=== PATIENT | female | born 1930 | race Caucasian/White ===

== ENCOUNTER 2016-11-20 19:57 | Emergency (ER) | payer OTHER ==
--- NOTE | 2016-11-20 20:05 | CPEKG ---
Heart Rate: 95 RR Interval: 632 P-R Interval: 232 QRSD Interval: 114 QT Interval: 360 QTC Interval: 453 P [place]: 31 QRS [place]: -63 T Wave [place]: 110 EKG Severity - ABNORMAL ECG - EKG Impression: SINUS RHYTHM EKG Impression: FIRST DEGREE AV BLOCK EKG Impression: LAD, CONSIDER LEFT ANTERIOR FASCICULAR BLOCK Electronically Signed By: Ritesh Medellin 20-Nov-2016 23:01:04
--- NOTE | 2016-11-20 20:23 | EDPHY ---
H & P Allergies/Adverse Reactions: carvedilol [From Coreg] Allergy (Verified 11/20/16 20:08) furosemide [From Lasix] Allergy (Verified 11/20/16 20:08) Home Medications: Medication Instructions Recorded Zocor 11/20/16 Departure - Departure Condition: Fair
[2016-11-20 20:33] LABS: % IMMATURE GRANULYOCYTES 0.3 % (0.0-1.1); ABSOLUTE IMMATURE GRANULOCYTES 0.06 10^3/uL (0.00-0.10); ADD DIFF? NO; ADD MORPH? NO; ADD SCAN? NO; ATYPICAL LYMPHOCYTE FLAG 10 (0-99); FRAGMENT RBC FLAG 0 (0-99); HEMATOCRIT 36.8 % (38.0-47.0); HEMOGLOBIN 12.8 g/dL (12.6-16.3); LEFT SHIFT FLG 0 (0-99); LIPEMIA HEMOLYSIS FLAG 90 (0-99); MEAN CELL HEMOGLOBIN 30.3 pg (27.9-34.1); MEAN CELL HEMOGLOBIN CONCENTR. 34.8 g/dL (32.4-36.7); MEAN PLATELET VOLUME 9.9 fL (8.7-11.7); PLATELET CLUMPS FLAG 0 (0-99); PLATELET COUNT 309 10^3/uL (150-400); RED BLOOD CELL COUNT 4.23 10^6/uL (4.18-5.33); RED CELL DISTRIBUTION WIDTH 12.8 % (11.5-15.2)
[2016-11-20 20:35] LABS: ALANINE AMINOTRANSFERASE 24 IU/L (9-52); ALBUMIN 4.2 g/dL (3.5-5.0); ALKALINE PHOSPHATASE 90 IU/L (38-126); ANION GAP 15 mEq/L (8-16); ASPARTATE AMINOTRANSFERASE 28 IU/L (14-46); BILIRUBIN,TOTAL 0.6 mg/dL (0.1-1.4); BILIRUBIN-CONJUGATED 0.4 mg/dL (0.0-0.5); BILIRUBIN-UNCONJUGATED 0.2 mg/dL (0.0-1.1); CALCIUM 9.2 mg/dL (8.5-10.4); CARBON DIOXIDE 25 mEq/l (22-31); CHLORIDE 94 mEq/L (97-110); CREATININE 1.2 mg/dL (0.6-1.0); GLOMERULAR FILTRATION RATE 43; GLUCOSE 162 mg/dL (70-100); POTASSIUM 3.8 mEq/L (3.5-5.2); SODIUM 134 mEq/L (134-144); TOTAL PROTEIN 7.7 g/dL (6.3-8.2)
--- NOTE | 2016-11-20 20:45 | EDPHY ---
H & P Stated Complaint: syncopal episode at dinner theater tonight, no trauma Time Seen by Provider: 11/20/16 20:42 HPI/ROS: CHIEF COMPLAINT: Vomiting, presyncope HISTORY OF PRESENT ILLNESS: The patient presents to the ED with complaints of vomiting and presyncope. The patient's symptoms began earlier this evening while attending a play. The patient denies any complaints of acute chest pain, shortness of breath, severe headache, focal numbness, weakness or acute neurologic complaints. The patient does have a history of chronic congestive heart failure which has been well managed. She denies increasing edema, orthopnea or PND. The patient has not been on recent antibiotics. She has no significant history of abdominal pathology. The patient denies any alcohol use this evening. The patient was brought in by paramedics. She received IV Zofran EN route. She currently reports that her nausea is improved but not resolved. REVIEW OF SYSTEMS: A comprehensive 10 point review of systems is otherwise negative aside from elements mentioned in the history of present illness. Source: Patient Exam Limitations: No limitations - Personal History Current Tetanus/Diphtheria Vaccine: Yes Current Tetanus Diphtheria and Acellular Pertussis (TDAP): Yes Tetanus Vaccine Date: 2011 - Medical/Surgical History Hx Asthma: No Hx Chronic Respiratory Disease: Yes Hx Diabetes: No Hx Cardiac Disease: Yes Hx Renal Disease: No Hx Cirrhosis: No Hx Alcoholism: No Hx HIV/AIDS: No Hx Splenectomy or Spleen Trauma: No Other PMH: HTN, CHF, hysterectomy - Social History Smoking Status: Never smoked - Physical Exam Exam: General Appearance: Alert, no distress Eyes: Pupils equal and round no pallor or injection ENT, Mouth: Mucous membranes moist Respiratory: There are no retractions, lungs are clear to auscultation Cardiovascular: Regular rate and rhythm Gastrointestinal: Abdomen is soft and nontender, no masses, bowel sounds normal Neurological: A&O, normal motor function, normal sensory exam, normal cranial nerves Skin: Warm and dry, no rashes Musculoskeletal: Neck is supple nontender Extremities: symmetrical, full range of motion Constitutional: Initial Vital Signs Temperature (C) 36.6 C 11/20/16 20:10 Heart Rate 100 11/20/16 20:10 Respiratory Rate 18 11/20/16 20:10 Blood Pressure 105/66 11/20/16 20:10 O2 Sat (%) 93 11/20/16 20:10 O2 Delivery Mode Nasal Cannula O2 (L/minute) 2 Allergies/Adverse Reactions: carvedilol [From Coreg] Allergy (Verified 11/20/16 20:08) furosemide [From Lasix] Allergy (Verified 11/20/16 20:08) Home Medications: Medication Instructions Recorded Bumetanide 11/20/16 Cephalexin [Keflex] 500 mg PO TID #15 cap 11/20/16 Losartan Potassium 11/20/16 Metoprolol Tartrate 11/20/16 Omeprazole 11/20/16 Ondansetron Odt [Zofran Odt] 4 mg PO Q4PRN PRN #20 tab 11/20/16 Potassium 11/20/16 Probiotic 11/20/16 Spironolactone 11/20/16 VITAMIN D 11/20/16 Zocor 11/20/16 Medical Decision Making - Diagnostics EKG Interpretation: EKG: Complete interpretation has been separately recorded in the [email or web address] archive. Summary impression: Sinus rhythm, first-degree AV block ED Course/Re-evaluation: The patient presents to the ED after a vasovagal episode precipitated by likely vomiting. The patient is well-appearing in the ED with stable vital signs. The patient did receive IV Zofran. She has no evidence of an obvious arrhythmia on her EKG. Clinically she has no evidence of an acute stroke or acute abdomen. The patient does have evidence of a urinary tract infection. She received 1 g of IV ceftriaxone. The patient had serial examinations in the ED over 2 and 0.5 hour period. She has had no recurrent vomiting. She feels better after IV fluids. She would like to be discharged home. Patient will be given a prescription for Keflex. She is given customary return precautions. Differential Diagnosis: Differential diagnosis considered includes gastroenteritis, dehydration, vasovagal episode, arrhythmia, heart failure, medication side effect - Data Points Laboratory Results: Laboratory Results 11/20/16 19:58 11/20/16 19:58 11/20/16 11/20/16 21:15 19:58 WBC 18.77 H 10^3/uL (3.80-9.50) RBC 4.23 10^6/uL (4.18-5.33) Hgb 12.8 g/dL (12.6-16.3) Hct 36.8 L % (38.0-47.0) MCV 87.0 fL (81.5-99.8) MCH 30.3 pg (27.9-34.1) MCHC 34.8 g/dL (32.4-36.7) RDW 12.8 % (11.5-15.2) Plt Count 309 10^3/uL (150-400) MPV 9.9 fL (8.7-11.7) Neut % (Auto) 56.8 % (39.3-74.2) Lymph % (Auto) 31.0 % (15.0-45.0) [place] % (Auto) 8.8 % (4.5-13.0) Eos % (Auto) 2.6 % (0.6-7.6) Baso % (Auto) 0.5 % (0.3-1.7) Nucleat RBC Rel Count 0.0 % (0.0-0.2) Absolute Neuts (auto) 10.68 H 10^3/uL (1.70-6.50) Absolute Lymphs (auto) 5.81 H 10^3/uL (1.00-3.00) Absolute Monos (auto) 1.65 H 10^3/uL (0.30-0.80) Absolute Eos (auto) 0.48 H 10^3/uL (0.03-0.40) Absolute Basos (auto) 0.09 10^3/uL (0.02-0.10) Absolute Nucleated RBC 0.00 10^3/uL (0-0.01) Immature Gran % 0.3 % (0.0-1.1) Immature Gran # 0.06 10^3/uL (0.00-0.10) Sodium 134 mEq/L (134-144) Potassium 3.8 mEq/L (3.5-5.2) Chloride 94 L mEq/L (97-110) Carbon Dioxide 25 mEq/l (22-31) Anion Gap 15 mEq/L (8-16) BUN 36 H mg/dL (7-23) Creatinine 1.2 H mg/dL (0.6-1.0) Estimated GFR 43 Glucose 162 H mg/dL (70-100) Calcium 9.2 mg/dL (8.5-10.4) Total Bilirubin 0.6 mg/dL (0.1-1.4) Conjugated Bilirubin 0.4 mg/dL (0.0-0.5) Unconjugated Bilirubin 0.2 mg/dL (0.0-1.1) AST 28 IU/L (14-46) ALT 24 IU/L (9-52) Alkaline Phosphatase 90 IU/L (38-126) Total Protein 7.7 g/dL (6.3-8.2) Albumin 4.2 g/dL (3.5-5.0) Lipase 181.0 IU/L (23-300) Urine Color YELLOW Urine Appearance HAZY Urine pH 5.0 (5.0-7.5) Ur Specific [place] 1.011 (1.002-1.030) Urine Protein NEGATIVE (NEGATIVE) Urine Ketones NEGATIVE (NEGATIVE) Urine Blood NEGATIVE (NEGATIVE) Urine Nitrate NEGATIVE (NEGATIVE) Urine Bilirubin NEGATIVE (NEGATIVE) Urine Urobilinogen NEGATIVE EU (0.2-1.0) Ur Leukocyte Esterase 3+ H (NEGATIVE) Urine RBC 25-50 H /hpf (0-3) Urine WBC 10-15 H /hpf (0-3) Ur Epithelial Cells TRACE /lpf (NONE-1+) Hyaline Casts 1-5 /lpf (0-1) Urine Mucus TRACE /lpf (NONE-1+) Ur Culture Indicated? INDICATED H (NI) Urine Glucose NEGATIVE (NEGATIVE) Departure - Departure Disposition: Home, Routine, Self-Care Clinical Impression: Vomiting, Vasovagal episode, Urinary tract infection Condition: Fair Instructions: Acute Nausea and Vomiting (ED), Urinary Tract Infection in Women (ED) Additional Instructions: 1. Take antibiotics as directed. 2. Zofran as needed for nausea. 3. Please return to the ED for pain, fever, ongoing vomiting or other concerns. 4. Please follow up with your primary care provider as needed
[2016-11-20 21:26] LABS: COLOR YELLOW; LEUKOCYTE ESTERASE,URINE 3+ (NEGATIVE); NITRITE,URINE NEGATIVE (NEGATIVE)
[2016-11-20 21:39] LABS: MUCUS TRACE /lpf (NONE-1+); RBC,URINE 25-50 /hpf (0-3)
[2016-11-20 22:44] VITALS: BP 112/64; PULSE 78; RESP 20; TEMP 98.1; O2SAT 99
== END 2016-11-20 22:53 | disposition home or self-care (01) ==
LOC: EDUNIT#
DX: R55 Syncope and collapse (principal); N39.0 Urinary tract infection, site not specified; I10 Essential (primary) hypertension; I50.9 Heart failure, unspecified; B96.89 Other specified bacterial agents as the cause of diseases classified elsewhere
CPT/HCPCS: 93005; 96365; 99284; J0696